=== PATIENT | male | born 1955 | race Caucasian/White ===

== ENCOUNTER → 2018-06-07 | Outpatient (CLI) | payer OTHER | END | disposition home or self-care (01) | LOC: HKI 13:19 | DX: M16.0 Bilateral primary osteoarthritis of hip (principal) | CPT/HCPCS: 73523 ==

== ENCOUNTER → 2018-08-08 | Outpatient (CLI) | payer OTHER | END | disposition home or self-care (01) | LOC: HKI 10:43 | DX: M25.551 Pain in right hip (principal) | CPT/HCPCS: Z7500 ==

== ENCOUNTER 2018-08-17 11:14 | Inpatient (IN) | payer OTHER ==
[2018-08-17] MEDS: LACTATED RINGER'S 1,000 ML IV* (06:00)
[2018-08-17] MEDS: TRANEXAMIC ACID 1,000 MG in NS 100 ML PRE-OP X1 IVPB (06:00)
[2018-08-17] MEDS: TRANEXAMIC ACID 1,000 MG in NS 100 ML INTRA-OP X1 IVPB (06:00)
[2018-08-17] MEDS: CEFAZOLIN 2 GM/50 ML (PMX) 50 ML IVPB (06:00)
[2018-08-17] MEDS: ONDANSETRON 4 MG INJ IV ×4 (06:00→21:26)
[~2018-08-17 11:14] MED LIST: CEFAZOLIN 1 GM INJ
[2018-08-17] MEDS: DEXAMETHASONE 4 MG/ML 1 ML INJ IV (12:31)
[2018-08-17] MEDS ORDERED: NA PHOSPHATE/BIPHOS 133 ML ENEMA PR (14:00)
[2018-08-17] MEDS ORDERED: MAGNESIUM HYDROXIDE 30ML CUP PO (14:00)
[2018-08-17] MEDS ORDERED: BETHANECHOL 25 MG TAB PO (14:00)
[2018-08-17] MEDS: ASPIRIN (EC) 325 MG TAB PO ×2 (14:00→21:26)
[2018-08-17] MEDS ORDERED: BISACODYL 10 MG SUPP PR (14:00)
[2018-08-17] MEDS ORDERED: oxyCODONE 5 MG TAB PO ×2 (14:00)
[2018-08-17] MEDS ORDERED: NALOXONE (0.4 MG/ML) INJ IV (14:00)
[2018-08-17] MEDS ORDERED: NACL 0.9% 3 ML SYG IV (14:00)
[2018-08-17] MEDS ORDERED: DIPHENHYDRAMINE 50 MG INJ IV (14:00)
[2018-08-17] MEDS ORDERED: SENNA/DOCUSATE NA (8.6MG/50MG) TAB PO (14:00)
[2018-08-17] MEDS ORDERED: MIDAZOLAM 1 MG/ML 2 ML INJ (14:08)
[2018-08-17] MEDS ORDERED: FENTAnyl 50 MCG/ML VIAL ×2 (14:08→16:20)
[2018-08-17] MEDS: POLYMYXIN B 500000 UNIT INJ (14:21)
[2018-08-17] MEDS: BACITRACIN 50000 UNITS INJ (14:21)
[2018-08-17] MEDS ORDERED: LIDOCAINE 2% (SDV) 5 ML INJ (14:33)
[2018-08-17] MEDS ORDERED: PROPOFOL 20 ML (14:33)
[2018-08-17] MEDS ORDERED: FAMOTIDINE 20 MG INJ (14:34)
[2018-08-17] MEDS ORDERED: ONDANSETRON 4 MG INJ (14:34)
[2018-08-17] MEDS ORDERED: VASOPRESSIN 20 UNITS INJ (14:36)
[2018-08-17] MEDS ORDERED: HYDROmorphONE 1 MG/5 ML IV SYRINGE IV (15:30)
[2018-08-17] MEDS ORDERED: METOPROLOL 5 MG INJ ×2 (16:16→16:56)
[2018-08-17] MEDS: HIP PAIN COCKTAIL (CEFUROXIME) INJ (16:39)
[2018-08-17] MEDS ORDERED: DEXAMETHASONE 4 MG/ML 1 ML INJ (16:56)
[2018-08-17] MEDS ORDERED: ROPIVACAINE 0.2% 20 ML VIAL (16:56)
[2018-08-17 17:35] LABS: ADD UMIC NO; UR ASCORBIC ACID NEGATIVE (NEGATIVE); UR BILIRUBIN (Dip) NEGATIVE (NEGATIVE); UR BLOOD (Dip) NEGATIVE (NEGATIVE); UR CLARITY CLEAR (CLEAR); UR COLOR COLORLESS (YELLOW); UR GLUCOSE (Dip) NEGATIVE (NEGATIVE); UR KETONES (Dip) TRACE mg/dL (NEGATIVE); UR LEUKOCYTE ESTERASE (Dip) NEGATIVE Leu/ul (NEGATIVE); UR NITRITE (Dip) NEGATIVE (NEGATIVE); UR SPECIFIC GRAVITY (Dip) 1.011 (1.003-1.030); UR TOTAL PROTEIN (Dip) NEGATIVE (NEGATIVE); UR UROBILINOGEN (Dip) NEGATIVE (NEGATIVE)
[2018-08-17] MEDS: HYDROmorphONE 1 MG/5 ML IV SYRINGE IV ×3 (17:56→18:13)
[2018-08-17] MEDS: SOD CHLORIDE 0.9% 1,000 ML IV (18:00)
[2018-08-17] MEDS: CEFAZOLIN 1 GM/50 ML (PMX) 50 ML IVPB ×2 (18:06→21:26)
[2018-08-17] MEDS: DOCUSATE SODIUM 100 MG CAP PO (18:18)
[2018-08-17] MEDS: ATENOLOL 25 MG TAB PO (21:00)
[2018-08-17] MEDS: FINASTERIDE 5 MG TAB PO ×2 (21:00→21:27)
[2018-08-17] MEDS: LORATADINE 10 MG TAB PO (21:00)
[2018-08-17] MEDS: AMLODIPINE 10 MG TAB PO (21:00)
[2018-08-17] MEDS: HYDROCHLOROTHIAZIDE 25 MG TAB PO (21:00)
[2018-08-17] MEDS: GABAPENTIN 100 MG CAP PO (21:26)
[2018-08-18] MEDS: ONDANSETRON 4 MG INJ IV ×2 (02:00→08:00)
[2018-08-18] MEDS: SOD CHLORIDE 0.9% 1,000 ML IV (02:14)
[2018-08-18 05:02] LABS: ADD MAN DIFF? NO
[2018-08-18 05:05] LABS: WHITE BLOOD COUNT 12.5 10^3/ul (4.8-10.8)
[2018-08-18 05:05] LABS: BASOPHILS % 0.1 % (0.0-2.0); HEMATOCRIT 28.8 % (42.0-52.0); HEMOGLOBIN 9.6 g/dl (14.0-18.0); LYMPHOCYTES # 0.7 10^3/ul (0.8-2.9); LYMPHOCYTES % 5.7 % (15.0-51.0); MEAN CORPUSCULAR HEMOGLOBIN 29.9 pg (29.0-33.0); MEAN CORPUSCULAR HGB CONC 33.3 g/dl (32.0-37.0); MEAN CORPUSCULAR VOLUME 89.7 fl (82.0-101.0); MEAN PLATELET VOLUME 9.7 fl (7.4-10.4); MONOCYTE # 1.2 10^3/ul (0.3-0.9); MONOCYTES % 9.6 % (0.0-11.0); NEUTROPHIL # 10.5 10^3/ul (1.6-7.5); NEUTROPHILS % 84.1 % (39.0-77.0); PLATELET COUNT 236 10^3/UL (140-415); RED BLOOD COUNT 3.21 10^6/ul (4.70-6.10); RED CELL DISTRIBUTION WIDTH 13.1 % (11.5-14.5)
[2018-08-18 05:31] LABS: MAGNESIUM 1.4 mg/dl (1.7-2.5)
[2018-08-18 05:31] LABS: PHOSPHORUS 2.9 mg/dl (2.5-4.9)
[2018-08-18 05:34] LABS: ANION GAP 9 (8-16); BLOOD UREA NITROGEN 12 mg/dl (7-20); CALCIUM 8.2 mg/dl (8.4-10.2); CARBON DIOXIDE 26 mmol/L (21-31); CHLORIDE 108 mmol/L (97-110); CREATININE 0.76 mg/dl (0.61-1.24); GLUCOSE 124 mg/dl (70-220); POTASSIUM 3.9 mmol/L (3.5-5.1); SODIUM 139 mmol/L (135-144)
[2018-08-18] MEDS: CEFAZOLIN 1 GM/50 ML (PMX) 50 ML IVPB (05:36)
[2018-08-18] MEDS: PANTOPRAZOLE (EC) 40 MG TAB PO (05:36)
[2018-08-18 05:38] LABS: ADD UMIC NO; UR ASCORBIC ACID 40 mg/dL (NEGATIVE); UR BILIRUBIN (Dip) NEGATIVE (NEGATIVE); UR BLOOD (Dip) NEGATIVE (NEGATIVE); UR CLARITY CLEAR (CLEAR); UR COLOR YELLOW (YELLOW); UR GLUCOSE (Dip) NEGATIVE (NEGATIVE); UR KETONES (Dip) NEGATIVE (NEGATIVE); UR LEUKOCYTE ESTERASE (Dip) NEGATIVE Leu/ul (NEGATIVE); UR NITRITE (Dip) NEGATIVE (NEGATIVE); UR SPECIFIC GRAVITY (Dip) 1.024 (1.003-1.030); UR TOTAL PROTEIN (Dip) NEGATIVE (NEGATIVE); UR UROBILINOGEN (Dip) NEGATIVE (NEGATIVE)
[2018-08-18] MEDS ORDERED: AMLODIPINE 10 MG TAB PO ×2 (09:00→21:00)
[2018-08-18] MEDS ORDERED: LORATADINE 10 MG TAB PO (09:00)
[2018-08-18] MEDS: LORATADINE 10 MG TAB PO (09:00)
[2018-08-18] MEDS ORDERED: ATENOLOL 25 MG TAB PO (09:00)
[2018-08-18] MEDS ORDERED: FINASTERIDE 5 MG TAB PO (09:00)
[2018-08-18] MEDS: FERROUS FUMARATE (SR) TAB PO (09:00)
[2018-08-18] MEDS ORDERED: HYDROCHLOROTHIAZIDE 25 MG TAB PO (09:00)
[2018-08-18] MEDS: FLUTICASONE 0.05% 16 GM NAS SPRAY NASAL (09:00)
[2018-08-18] MEDS: HYDROCHLOROTHIAZIDE 25 MG TAB PO (09:07)
[2018-08-18] MEDS: CELECOXIB 200 MG CAP PO (09:07)
[2018-08-18] MEDS: ATENOLOL 25 MG TAB PO (09:07)
[2018-08-18] MEDS: FINASTERIDE 5 MG TAB PO (09:08)
[2018-08-18] MEDS: GABAPENTIN 100 MG CAP PO (09:08)
[2018-08-18] MEDS: DOCUSATE SODIUM 100 MG CAP PO (09:08)
[2018-08-18] MEDS: ASPIRIN (EC) 325 MG TAB PO (09:08)
[2018-08-18] MEDS: MAGNESIUM OXIDE 400 MG TAB PO (10:34)
[2018-08-18] MEDS: oxyCODONE 5 MG TAB PO (13:38)
== END 2018-08-18 18:15 | disposition home health service (06) | DRG 470 ==
LOC: REC 11:14 → MS1 18:35
PROC: 0SR904A Replacement of Right Hip Joint with Ceramic on Polyethylene Synthetic Substitute, Uncemented, Open Approach (ICD-10-PCS; principal; 2018-08-17 14:07)
DX: M16.11 Unilateral primary osteoarthritis, right hip (principal); D45 Polycythemia vera; I10 Essential (primary) hypertension; N40.0 Benign prostatic hyperplasia without lower urinary tract symptoms
CPT/HCPCS: 72170; 73500; 73530; 80048; 81003; 83735; 84100; 85025; 87086; 88304; 88311; 97116; 97161; 97167; 97530

== ENCOUNTER → 2018-08-29 | Outpatient (CLI) | payer OTHER | END | disposition home or self-care (01) | LOC: HKI 10:57 | DX: Z09 Encounter for follow-up examination after completed treatment for conditions other than malignant neoplasm (principal); Z96.641 Presence of right artificial hip joint | CPT/HCPCS: 73502 ==

== ENCOUNTER → 2018-09-26 | Outpatient (CLI) | payer OTHER | END | disposition home or self-care (01) | LOC: HKI 11:21 | DX: Z09 Encounter for follow-up examination after completed treatment for conditions other than malignant neoplasm (principal); Z96.641 Presence of right artificial hip joint | CPT/HCPCS: 73502 ==

== ENCOUNTER → 2018-10-03 | Outpatient (CLI) | payer OTHER | END | disposition home or self-care (01) | LOC: HKI 11:48 | DX: Z47.1 Aftercare following joint replacement surgery (principal); Z96.641 Presence of right artificial hip joint ==

== ENCOUNTER → 2018-10-10 | Outpatient (CLI) | payer OTHER | END | disposition home or self-care (01) | LOC: HKI 11:39 | DX: Z47.1 Aftercare following joint replacement surgery (principal); Z96.641 Presence of right artificial hip joint ==

== ENCOUNTER → 2018-10-17 | Outpatient (CLI) | payer OTHER | END | disposition home or self-care (01) | LOC: HKI 14:36 | DX: Z48.89 Encounter for other specified surgical aftercare (principal) ==